=== PATIENT | female | born 1990 | race Two or more races ===

== ENCOUNTER 2016-09-23 21:49 | Emergency (ER) | payer OTHER ==
[2016-09-24 01:33] LABS: Urine Bilirubin Negative (Negative); Urine Glucose Negative (Negative); Urine Nitrite Negative (Negative)
[2016-09-24 01:42] LABS: Hematocrit 40 % (35-47); Hemoglobin 13.3 g/dl (12.0-16.0); Mean Corpuscular HGB Conc 34 g/dl (31-36); Mean Corpuscular Hemoglobin 33 pg (27-31); Mean Corpuscular Volume 99 fL (80-97); Mean Platelet Volume 8 um3 (7.4-10.4); Red Blood Count 4.02 10^6/ul (4.0-5.4); Red Cell Distribution Width 13 % (10.5-15); White Blood Count 8.4 10^3/ul (3.5-10.8)
[2016-09-24 01:56] LABS: ALT 16 U/L (7-52); AST 31 U/L (13-39); Albumin 4.5 g/dL (3.2-5.2); Alkaline Phosphatase 62 U/L (34-104); Amylase 101 U/L (29-103); Anion Gap 6 mmol/L (2-11); Blood Urea Nitrogen 14 mg/dL (6-24); C Reactive Protein < 1.00 mg/L (< 5.00); CO2 Carbon Dioxide 29 mmol/L (22-32); Calcium 9.5 mg/dL (8.6-10.3); Chloride 102 mmol/L (101-111); EGFR African American 78.9 (>60); EGFR Non-African American 61.3 (>60); Globulin 2.7 g/dL (2-4); Glucose 105 mg/dL (70-100); Lipase 39 U/L (11.0-82.0); Potassium 3.7 mmol/L (3.5-5.0); Sodium 137 mmol/L (133-145); Total Protein 7.2 g/dL (6.4-8.9)
--- NOTE | 2016-09-24 01:56 | ED ---
Luis Collins Rebecca, scribed for Corey Adhikari MD on 09/24/16 at 0125 . Abdominal Pain/Female - HPI Summary HPI Summary: Pt is a 26 y/o F who presents to ED c/o abd pain. Pain began suddenly 1 week ago and has been intermittent since onset with the most recent bout starting yesterday, being constant since then. Pain is in the RLQ with radiation to the R flank. Pain is characterized as burning or a muscle strain and currently ranked 7/10. Sx aggravated by sitting and alleviated by nothing. Has not taken anything to treat the pain. Additionally c/o painful BM. Denies fever, N/V/D, dysuria or decreased appetite. Has an appointment for tomorrow but was advised to be evaluated by RACHEL kasper. No prior similar episodes. - History of Current Complaint Chief Complaint: EDAbdPain Stated Complaint: ABD PAIN Time Seen by Provider: 09/24/16 01:21 Hx Obtained From: Patient Onset/Duration: Sudden Onset, Lasting Weeks - 1 week, Still Present Timing: Intermittent Episode Lasting Severity Initially: Moderate Severity Currently: Moderate Pain Intensity: 7 Pain Scale Used: 0-10 Numeric Location: Discrete At: RLQ Radiates: Yes Radiates to: Flank - right Character: Burning, Other: - Muscle strain Aggravating Factor(s): Other: - Sitting Alleviating Factor(s): Nothing Associated Signs and Symptoms: Positive: Other: - Painful BM. Negative: Fever, Urinary Symptoms, Decreased Appetite, Nausea, Vomiting, Diarrhea Allergies/Adverse Reactions: Allergies Allergy/AdvReac Type Severity Reaction Status Date / Time Mupirocin [From Bactroban] Allergy Itching Verified 09/23/16 21:54 PMH/Surg Hx/FS Hx/Imm Hx Endocrine/Hematology History: Denies: Hx Diabetes Cardiovascular History: Denies: Hx Hypertension EENT History: Reports: Hx Seasonal Allergies Infectious Disease History: No Infectious Disease History: Denies: Traveled Outside the [place] in Last 30 Days - Family History Known Family History: Positive: Other - Breast CA Negative: Cardiac Disease - Social History Alcohol Use: None Hx Substance Use: No Substance Use Type: Reports: None Hx Tobacco Use: No Smoking Status (MU): Never Smoked Tobacco Review of Systems Negative: Fever Positive: Abdominal Pain - RLQ, Other - Painful BM; Denies decreased appetite. Negative: Vomiting, Diarrhea, Nausea Negative: dysuria All Other Systems Reviewed And Are Negative: Yes Physical Exam Triage Information Reviewed: Yes Vital Signs On Initial Exam: Initial Vitals Temp Pulse Resp BP Pulse Ox 98.8 F 75 16 122/75 100 09/23/16 21:54 09/23/16 21:54 09/23/16 21:54 09/23/16 21:54 09/23/16 21:54 Vital Signs Reviewed: Yes Appearance: Positive: Well-Appearing, No Pain Distress Skin: Positive: Warm Head/Face: Positive: Normal Head/Face Inspection Eyes: Positive: Normal Neck: Positive: Supple Respiratory/Lung Sounds: Positive: Clear to Auscultation, Breath Sounds Present Cardiovascular: Positive: Normal Abdomen Description: Positive: Nontender, No Organomegaly, Soft Bowel Sounds: Positive: Present Musculoskeletal: Positive: Strength/ROM Intact Neurological: Positive: Sensory/Motor Intact Psychiatric: Positive: Affect/Mood Appropriate Diagnostics - Vital Signs Vital Signs Temp Pulse Resp BP Pulse Ox 09/24/16 01:00 98.2 F 61 16 98/68 100 09/24/16 00:00 99.9 F 58 16 96/61 98 09/23/16 23:12 99.1 F 66 16 98/62 97 09/23/16 21:54 98.8 F 75 16 122/75 100 - Laboratory Lab Results: Lab Results 09/24/16 09/24/16 09/24/16 Range/Units 01:15 01:30 01:30 WBC 8.4 (3.5-10.8) 10^3/ul RBC 4.02 (4.0-5.4) 10^6/ul Hgb 13.3 (12.0-16.0) g/dl Hct 40 (35-47) % MCV 99 H (80-97) fL MCH 33 H (27-31) pg MCHC 34 (31-36) g/dl RDW 13 (10.5-15) % Plt Count 206 (150-450) 10^3/ul MPV 8 (7.4-10.4) um3 Neut % (Auto) 51.0 (38-83) % Lymph % (Auto) 40.4 (25-47) % [place] % (Auto) 6.5 (1-9) % Eos % (Auto) 1.1 (0-6) % Baso % (Auto) 1.0 (0-2) % Absolute Neuts (auto) 4.3 (1.5-7.7) 10^3/ul Absolute Lymphs (auto) 3.4 (1.0-4.8) 10^3/ul Absolute Monos (auto) 0.5 (0-0.8) 10^3/ul Absolute Eos (auto) 0.1 (0-0.6) 10^3/ul Absolute Basos (auto) 0.1 (0-0.2) 10^3/ul Absolute Nucleated RBC 0.01 10^3/ul Nucleated RBC % 0.1 Lactic Acid 1.3 (0.5-2.0) mmol/L Urine Color Yellow Urine Appearance Clear Urine pH 6.0 (5-9) Ur Specific [place] 1.023 (1.010-1.030) Urine Protein Negative (Negative) Urine Ketones Trace H (Negative) Urine Blood Negative (Negative) Urine Nitrate Negative (Negative) Urine Bilirubin Negative (Negative) Urine Urobilinogen Negative (Negative) Ur Leukocyte Esterase Negative (Negative) Urine Glucose Negative (Negative) Urine Ascorbic Acid * H (Negative) Pertinent Lab Values Are: WNL Result Diagrams: 09/24/16 01:30 09/24/16 01:30 Lab Statement: Any lab studies that have been ordered have been reviewed, and results considered in the medical decision making process. Re-Evaluation - Re-Evaluation First Eval Re-Evaluation Time: 02:31 Change: Improved Comment: Pt is feeling significantly improved. Discussed d/c plan with pt and she agrees and understands. Abdominal Pain Fem Course/Dx - Course Course Of Treatment: Pt is a 26 y/o F who presents to ED with a CC of RLQ pain with radiation to the R flank intermittent for 1 week. Additionally c/o painful BM. Denies N/V/D, dysuria, fever or decreased appetite. Pt will be d/c to home with a dx of abdominal pain with a followup with Georgie tomorrow, as planned. - Diagnoses Provider Diagnoses: Abdominal pain Discharge - Discharge Plan Condition: Stable Disposition: HOME Patient Education Materials: Abdominal Pain (ED) Referrals: [facility] GEORGIE Deluna [Primary Care Provider] - 1 Day (Follow up with Georgie tomorrow, as scheduled. ) The documentation as recorded by the scribeLuis Rebecca accurately reflects the service I personally performed and the decisions made by me, Corey Adhikari MD.
[2016-09-24 02:43] VITALS: BP 102/58
== END 2016-09-24 02:42 | disposition home or self-care (01) ==
LOC: ED 21:49
DX: R10.31 Right lower quadrant pain (principal)
CPT/HCPCS: 36415; 80053; 81003; 82150; 83605; 83690; 84702; 85025; 86140; 99283

== ENCOUNTER 2018-06-23 18:58 | Emergency (ER) | payer SELFPAY ==
[2018-06-23 19:20] VITALS: BP 106/47
--- NOTE | 2018-06-23 20:07 | UC ---
Abdominal Pain Female HPI - HPI Summary HPI Summary: Patient presents with 24 hours of prolonged progressive urinary symptoms. Patient reports hematuria, frequency, or dysuria. Patient states he has been little cloudy. No nausea vomiting. mild suprapubic abdominal pain. No back pain. No fevers or chills. Patient with a history of UTI. Patient states this feels similar. Last UTI approximately 2015. Patient without any vaginal discharge/itching/or odor. Patient states she is not . Patient has not taken any [id number] treatments for her symptoms. Patient without any other complaints. No history of pelvic surgeries Patient's medications reviewed this visit. - History of Current Complaint Chief Complaint: UCGU Stated Complaint: UTI Time Seen by Provider: 06/23/18 19:36 Hx Obtained From: Patient ?: No Onset/Duration: Gradual Onset Severity Initially: Mild Severity Currently: Moderate Pain Intensity: 5 Pain Scale Used: 0-10 Numeric Location: Suprapubic Allergies/Adverse Reactions: Allergies Allergy/AdvReac Type Severity Reaction Status Date / Time mupirocin [From Bactroban] Allergy Itching Verified 06/23/18 19:20 Home Medications: Home Medications Fluticasone Propionate [Flonase Allergy Relief] 50 mcg NA 06/23/18 [History] Loratadine [Claritin] 10 mg PO 06/23/18 [History] PMH/Surg Hx/FS Hx/Imm Hx Previously Healthy: Yes - Surgical History Surgical History: Yes Surgery Procedure, Year, and Place: hip orthroscopy to the rt - Family History Known Family History: Positive: Other - Breast CA Negative: Cardiac Disease - Social History Lives: With Family Alcohol Use: Weekly Substance Use Type: None Smoking Status (MU): Never Smoked Tobacco Review of Systems Constitutional: Negative Skin: Negative Genitourinary: Dysuria, Hematuria, Urgency All Other Systems Reviewed And Are Negative: Yes Physical Exam - Summary Physical Exam Summary: Vital Signs Reviewed: Yes A+Ox3, no distress Eyes: Conjunctiva Clear ENT: Hearing grossly normal neck: supple Respiratory: Positive: CTA throughout no w/r no increased wo Cardiovascular: skin color reflect adequate perfusion RRR nl s1, s2 no m/r abd soft + BS no guarding, no rebound no CVA Musculoskeletal Exam: BERTRAND x 4 without difficulty Neurological: Positive: Alert, ambulatory without difficulty Psychological: Positive: Normal Response To Family Skin: Positive: no rash, no ecchymosis Triage Information Reviewed: Yes Vital Signs: Initial Vital Signs Temp 97.9 F 06/23/18 19:15 Pulse 70 06/23/18 19:15 Resp 18 06/23/18 19:15 BP 106/47 06/23/18 19:15 Pulse Ox 100 06/23/18 19:15 Abd Pain Female Course/Dx - Course Course Of Treatment: Patient presents with 24 hours progressive in her symptoms. Patient states she's had some hematuria dysuria and frequency. Patient without any back pain fevers chills nausea vomiting. On exam patient nontoxic appearing vital signs reviewed. Patient with urinalysis consistent with UTI. We'll start patient on Macrobid and Pyridium. Motrin Tylenol. Patient states sometimes she gets yeast infections. We'll give patient prescription for Diflucan as needed. Patient will be culture. Patient aware may receive a phone call for follow-up. Return precautions discussed. Patient comfortable in agreement with plan. - Differential Dx/Diagnosis Provider Diagnoses: UTI Discharge - Sign-Out/Discharge Documenting (check all that apply): Patient Departure All imaging exams completed and their final reports reviewed: No Studies - Discharge Plan Condition: Stable Disposition: HOME Prescriptions: Fluconazole [Diflucan 150 MG (NF)] 150 mg PO ONCE #1 tab Nitrofurantoin Monohyd/M-Cryst [Macrobid 100 mg Capsule] 100 mg PO BID #14 cap Phenazopyridine TAB* [Pyridium 100 mg TAB*] 100 mg PO TID PRN #9 tab PRN Reason: burning with urination Patient Education Materials: Urinary Tract Infection in Women (ED) Referrals: No Primary Care Phys,[facility] [Primary Care Provider] - Additional Instructions: - stay well hydrated - drink plenty of non-alcoholic, non caffinated beverages - your urine will be further tested - if you require any changes to your treatment, we will contact you - this usually take 2 days - Contact your primary doctor to arrange a follow-up appointment next week. Contact your doctor or return with questions or concerns - Take your antibiotics exactly as prescribed until gone - Take pyridium as prescribed for discomfort. This will make your urine blaze orange - this is normal - you have been given a prescription for diflucan - okay to take if you develop a vaginal yeast infection from the antibiotics - Okay to alternate ibuprofen (Advil, Motrin) and Tylenol every 3 hours for pain. Take with food - Call your doctor or return with questions or concerns - Billing Disposition and Condition Condition: STABLE Disposition: Home
== END 2018-06-23 20:22 | disposition home or self-care (01) ==
LOC: UCEAST 18:58
DX: N39.0 Urinary tract infection, site not specified (principal); Z88.1 Allergy status to other antibiotic agents
CPT/HCPCS: 81003; 87077; 87086; 87186; 99212; G0463